=== PATIENT | female | born 1990 | race Two or more races ===

== ENCOUNTER 2023-02-23 17:19 | Inpatient (IN) | payer OTHER ==
[2023-02-24] MEDS ORDERED: Calcium Carbonate 500 MG Tab.Chew PO PRN (07:22)
[2023-02-24] MEDS ORDERED: Nalbuphine 10 MG/0.5 ML Syringe IVPUSH PRN (07:22)
[2023-02-24] MEDS ORDERED: Lidocaine 1% 50 ML MDV INJECT ONE (07:22)
[2023-02-24] MEDS ORDERED: Ondansetron 4 MG/2 ML SDV IVPUSH PRN (07:22)
[2023-02-24] MEDS ORDERED: Oxytocin/Lactated Ringers 10 UNIT/1,000 ML BAG IV SCH ×2 (07:30)
[2023-02-24 08:07] LABS: BASOPHILS PERCENT AUTO 0.1 % (0.0-1.0); EOSINOPHILS ABSOLUTE AUTO 0.1 K/mm3 (0.0-0.4); EOSINOPHILS PERCENT AUTO 0.8 % (0.0-6.0); HEMOGLOBIN 11.8 gm/dl (12.0-16.0); IMMATURE GRAN ABSOLUTE AUTO 0.05 K/mm3 (0.00-0.05); IMMATURE GRAN PERCENT AUTO 0.7 % (0.0-0.4); LYMPHOCYTES ABSOLUTE AUTO 1.8 K/mm3 (1.0-4.8); LYMPHOCYTES PERCENT AUTO 25.2 % (24.0-44.0); MEAN CORPUSCULAR HEMOGLOBIN 30.6 pg (28.0-32.0); MEAN CORPUSCULAR HGB CONC 34.7 g/dl (32.0-36.0); MEAN CORPUSCULAR VOLUME 88.3 fl (83.0-99.0); MEAN PLATELET VOLUME 12.1 fl (9.4-12.3); MONOCYTES ABSOLUTE AUTO 0.6 K/mm3 (0.0-0.8); MONOCYTES PERCENT AUTO 8.3 % (0.0-8.0); NEUTROPHILS ABSOLUTE AUTO 4.6 K/mm3 (1.8-7.7); NEUTROPHILS PERCENT AUTO 64.9 % (41.0-71.0); PLATELET COUNT,PLT 143 K/mm3 (150-400); RED BLOOD CELL COUNT 3.85 M/mm3 (4.10-5.30); WHITE BLOOD CELL COUNT,WBC 7.07 K/mm3 (3.9-11.3)
[2023-02-24] MEDS: Lactated Ringers 1,000 ML IV SCH ×4 (09:01→22:47)
[2023-02-24] MEDS ORDERED: fentaNYL 100 MCG/2 ML SDV EPIDUR PRN (21:22)
[2023-02-24] MEDS ORDERED: diphenhydrAMINE 50 MG/ML SDV IVPUSH PRN (21:22)
[2023-02-24] MEDS ORDERED: ePHEDrine 50 MG/ML SDV IVPUSH PRN (21:22)
[2023-02-24] MEDS: Bupivacaine/fentaNYL/NS 100 ML Bag EPIDUR PRN (21:34)
[2023-02-25] MEDS: Bupivacaine/fentaNYL/NS 100 ML Bag EPIDUR PRN ×2 (04:37→11:03)
[2023-02-25] MEDS ORDERED: Bupivacaine 0.25% 10 ML SDV ONE (12:00)
[2023-02-25] MEDS ORDERED: Bupivacaine 0.5% 30 ML SDV ONE (14:08)
[2023-02-25] MEDS ORDERED: ceFAZolin 2 GM Vial ONE (14:09)
[2023-02-25] MEDS ORDERED: Lidocaine 2% with EPINEPHrine 1:200,000 20 ML SDV ONE (14:09)
[2023-02-25] MEDS ORDERED: ePHEDrine 50 MG/ML SDV ONE (14:10)
[2023-02-25] MEDS ORDERED: Metoclopramide 10 MG/2 ML SDV IVPUSH ONE (14:19)
[2023-02-25] MEDS ORDERED: Sodium Chloride 0.9% 10 ML Syringe FLUSH PRN (14:19)
[2023-02-25] MEDS ORDERED: ceFAZolin 2 GM in Sodium Chloride 0.9% 50 ML IV ONE (14:19)
[2023-02-25] MEDS ORDERED: Citric Acid/Sodium Citrate Solution 30 ML Cup PO ONE (14:19)
[2023-02-25] MEDS ORDERED: Azithromycin 500 MG in Sodium Chloride 0.9% 250 ML IV ONE (14:21)
[2023-02-25] MEDS ORDERED: Lactated Ringers 1,000 ML IV SCH (14:30)
[2023-02-25] MEDS ORDERED: Morphine PF 10 MG/10 ML SDV ONE (14:42)
[2023-02-25] MEDS ORDERED: Methylergonovine 0.2 MG/1 ML Amp ONE (14:54)
[2023-02-25] MEDS ORDERED: Ketorolac 30 MG/ML SDV ONE (14:56)
[2023-02-25] MEDS ORDERED: Meperidine 50 MG/ML Vial ONE (15:01)
[2023-02-25] MEDS ORDERED: Ondansetron 4 MG/2 ML SDV IVPUSH PRN (15:31)
[2023-02-25] MEDS ORDERED: diphenhydrAMINE 50 MG/ML SDV IVPUSH PRN ×2 (15:31→16:22)
[2023-02-25] MEDS ORDERED: Naloxone 0.4 MG/ML SDV IVPUSH PRN (16:22)
[2023-02-25] MEDS ORDERED: ePHEDrine 50 MG/ML SDV IVPUSH PRN (16:22)
[2023-02-25] MEDS ORDERED: Dextrose 5%-Lactated Ringers 1,000 ML IV SCH (16:22)
[2023-02-25] MEDS ORDERED: Acetaminophen/oxyCODONE 325-5 MG Tab PO PRN ×2 (16:22)
[2023-02-25] MEDS: Ketorolac 30 MG/ML SDV IVPUSH SCH (20:48)
[2023-02-25] MEDS ORDERED: Sodium Chloride 0.9% 10 ML Syringe FLUSH SCH (21:00)
[2023-02-26] MEDS: Ketorolac 30 MG/ML SDV IVPUSH SCH ×2 (03:38→08:38)
[2023-02-26 06:02] LABS: BASOPHILS PERCENT AUTO 0.2 % (0.0-1.0); EOSINOPHILS PERCENT AUTO 0.1 % (0.0-6.0); HEMATOCRIT 28.7 % (37.0-47.0); IMMATURE GRAN ABSOLUTE AUTO 0.05 K/mm3 (0.00-0.05); IMMATURE GRAN PERCENT AUTO 0.4 % (0.0-0.4); LYMPHOCYTES ABSOLUTE AUTO 1.5 K/mm3 (1.0-4.8); LYMPHOCYTES PERCENT AUTO 11.6 % (24.0-44.0); MEAN CORPUSCULAR HEMOGLOBIN 30.9 pg (28.0-32.0); MEAN CORPUSCULAR HGB CONC 34.1 g/dl (32.0-36.0); MEAN CORPUSCULAR VOLUME 90.5 fl (83.0-99.0); MEAN PLATELET VOLUME 11.3 fl (9.4-12.3); MONOCYTES ABSOLUTE AUTO 0.7 K/mm3 (0.0-0.8); MONOCYTES PERCENT AUTO 5.5 % (0.0-8.0); NEUTROPHILS ABSOLUTE AUTO 10.9 K/mm3 (1.8-7.7); NEUTROPHILS PERCENT AUTO 82.2 % (41.0-71.0); PLATELET COUNT,PLT 130 K/mm3 (150-400); RED BLOOD CELL COUNT 3.17 M/mm3 (4.10-5.30)
[2023-02-26 06:08] LABS: HEMOGLOBIN 9.8 gm/dl (12.0-16.0)
[2023-02-26 07:13] LABS: SLIDE REVIEW ABNORMAL SMEAR
[2023-02-26] MEDS: Ibuprofen 600 MG Tab PO PRN ×2 (17:06→23:06)
[2023-02-26] MEDS ORDERED: Docusate Sodium 100 MG Cap PO PRN (19:25)
[2023-02-26] MEDS ORDERED: Simethicone 80 MG Tab.Chew PO PRN (19:52)
[2023-02-27] MEDS: Ibuprofen 600 MG Tab PO PRN (05:06)
[2023-02-27] MEDS ORDERED: Magnesium Hydroxide 400 MG/5 ML Susp 30 ML Cup PO ONE (05:10)
== END 2023-02-27 11:15 | disposition home or self-care (01) | DRG 788 ==
LOC: JD.OB 02-24 07:08 → OBSVTOIN 02-24 14:47 → JD.OB 02-25 15:11
PROVIDERS: ADMIT Obstetrics & Gynecology; ATTEND Obstetrics & Gynecology
PROC: 10D00Z1 Extraction of Products of Conception, Low, Open Approach (ICD-10-PCS; principal; 2023-02-25)
DX: O62.1 Secondary uterine inertia (principal); Z37.0 Single live birth; Z88.6 Allergy status to analgesic agent; Z79.899 Other long term (current) drug therapy; Z3A.39 39 weeks gestation of pregnancy
CPT/HCPCS: 36415; 51702; 59025; 85025; 86592; 86850; 86900; 86901; 94762; A9270-GY; J0690; J1885; J2175; J2210; J2274; J2300; J2405; J2590; J2765; J3010; J3490; J7120; J7121